=== PATIENT | male | born 1935 | race Asian ===

== ENCOUNTER → 2017-03-21 | Outpatient (CLI) | payer MEDICARE | END | disposition home or self-care (01) | LOC: LAB 10:11 | PROVIDERS: ATTEND Physician Assistant | DX: E03.9 Hypothyroidism, unspecified (principal) | CPT/HCPCS: 36415; 84439; 84443; 84480 ==

== ENCOUNTER 2017-11-02 09:38 | Emergency (ER) | payer MEDICARE ==
[~2017-11-02] VITALS: Ht 165.1 cm; Wt 65.8 kg
[2017-11-02 10:24] LABS: MICROSCOPIC NOT IND
[2017-11-02 10:30] LABS: CULTURE INDICATED? NO
[2017-11-02] MEDS ORDERED: CHOL200024 PO (11:04)
[2017-11-02] MEDS ORDERED: LISI2.5T PO (11:04)
[2017-11-02] MEDS ORDERED: CYAN100072 PO (11:04)
[2017-11-02] MEDS ORDERED: ATOR-2 PO (11:04)
[2017-11-02] MEDS ORDERED: SODIUM CHLORIDE FLUSH 10ML SYR IVF ONE (11:30)
[2017-11-02 12:01] LABS: BASOPHILS # (AUTO) 0.04 x10^3/uL (0-0.1); BASOPHILS % (AUTO) 1 % (0-1); EOSINOPHILS # (AUTO) 0.06 x10^3/uL (0-0.4); EOSINOPHILS % (AUTO) 1 % (1-7); LYMPHOCYTES # (AUTO) 1.61 x10^3/uL (1-3.4); LYMPHOCYTES % (AUTO) 27 % (22-44); MD NO; MEAN CORPUSCULAR HEMOGLOBIN 31.9 pg (27.5-34.5); MEAN CORPUSCULAR HGB CONC 33.4 g/dL (33.2-36.2); MEAN CORPUSCULAR VOLUME 95.5 fL (81-97); MEAN PLATELET VOLUME 8.7 fL (7.4-10.4); MONOCYTES # (AUTO) 0.45 x10^3/uL (0.2-0.8); MONOCYTES % (AUTO) 8 % (2-9); NEUTROPHILS # (AUTO) 3.73 x10^3/uL (1.8-6.8); NEUTROPHILS % (AUTO) 63 % (42-75); PLATELET COUNT 224 x10^3/uL (130-400); RED BLOOD COUNT 4.53 x10^6/uL (4.38-5.82); RED CELL DISTRIBUTION WIDTH 13.2 % (9.4-14.8)
[2017-11-02 12:09] LABS: ALANINE AMINOTRANSFERASE 18 U/L (12-78); ALBUMIN 4.2 g/dL (3.4-5.0); ANION GAP 6 mmol/L (5-15); CALCIUM 8.8 mg/dL (8.5-10.1); CHLORIDE 107 mmol/L (98-107); CREATININE 1.12 mg/dL (0.7-1.3)
[2017-11-02 12:11] LABS: ALKALINE PHOSPHATASE 132 U/L (45-117); BILIRUBIN,TOTAL 1.2 mg/dL (0.2-1.0); TOTAL PROTEIN 8.2 g/dL (6.4-8.2)
[2017-11-02 13:18] VITALS: BP 179/79
== END 2017-11-02 14:18 | disposition home or self-care (01) ==
LOC: ED 11:04
DX: R10.12 Left upper quadrant pain (principal); I10 Essential (primary) hypertension; E78.5 Hyperlipidemia, unspecified
CPT/HCPCS: 36415; 74177; 80053; 81003; 83605; 83690; 85025; 99285

== ENCOUNTER 2018-07-20 17:36 | Inpatient (IN) | payer MEDICARE ==
[~2018-07-20] VITALS: Ht 170.2 cm; Wt 52.0 kg
[~2018-07-20 17:36] MED LIST: ATOR-2 PO; CHOL200024 PO; CYAN100072 PO; LISI2.5T PO
[2018-07-20] MEDS ORDERED: ONDANSETRON ODT 4 MG PO ONE (18:00)
[2018-07-20] MEDS ORDERED: HYDROmorphone 2 MG/ML, 1ML IVPush PRN (18:00)
[2018-07-20] MEDS ORDERED: VICODIN PO (18:02)
[2018-07-20] MEDS ORDERED: ONDANSETRON ODT 4 MG ONE (18:12)
[2018-07-20] MEDS ORDERED: HYDROmorphone 2 MG/ML, 1ML ONE (18:12)
[2018-07-20] MEDS ORDERED: OXYcodone/APAP 5/325MG TABLET PO ONE (19:00)
[2018-07-20] MEDS ORDERED: OXYcodone/APAP 5/325MG TABLET ONE (19:00)
[2018-07-20 19:33] LABS: BASOPHILS # (AUTO) 0.03 x10^3/uL (0-0.1); BASOPHILS % (AUTO) 0 % (0-1); EOSINOPHILS # (AUTO) 0.06 x10^3/uL (0-0.4); EOSINOPHILS % (AUTO) 1 % (1-7); LYMPHOCYTES # (AUTO) 1.41 x10^3/uL (1-3.4); LYMPHOCYTES % (AUTO) 22 % (22-44); MD NO; MEAN CORPUSCULAR HEMOGLOBIN 31.7 pg (27.5-34.5); MEAN CORPUSCULAR VOLUME 93.2 fL (81-97); MEAN PLATELET VOLUME 7.4 fL (7.4-10.4); MONOCYTES % (AUTO) 8 % (2-9); NEUTROPHILS % (AUTO) 68 % (42-75); PLATELET COUNT 303 x10^3/uL (130-400); RED BLOOD COUNT 3.82 x10^6/uL (4.38-5.82); RED CELL DISTRIBUTION WIDTH 14.4 % (9.4-14.8)
[2018-07-20 19:45] LABS: ALANINE AMINOTRANSFERASE 15 U/L (12-78); ALBUMIN 3.2 g/dL (3.4-5.0); ANION GAP 6 mmol/L (5-15); CALCIUM 8.8 mg/dL (8.5-10.1); CHLORIDE 108 mmol/L (98-107); CREATININE 0.77 mg/dL (0.7-1.3)
[2018-07-20 19:49] LABS: ALKALINE PHOSPHATASE 331 U/L (45-117); BILIRUBIN,TOTAL 0.9 mg/dL (0.2-1.0); TOTAL PROTEIN 7.8 g/dL (6.4-8.2); TROPONIN I < 0.015 ng/mL (0.000-0.045)
[2018-07-20 20:45] LABS: MICROSCOPIC INDICATED
[2018-07-20 20:49] LABS: CULTURE INDICATED? YES
[2018-07-20] MEDS ORDERED: BISACODYL 10 MG SUPP PR PRN (21:00)
[2018-07-20] MEDS ORDERED: ACETAMINOPHEN 325 MG TABLET PO PRN (21:00)
[2018-07-20] MEDS ORDERED: POLYETHYLENE GLYCOL 17 GM PACKET PO PRN (21:00)
[2018-07-20] MEDS ORDERED: ONDANSETRON ODT 4 MG PO PRN (21:00)
[2018-07-20 21:02] VITALS: BP_SYST 201; BP_SYST 218; BP_DIAS 84; BP_DIAS 89
[2018-07-20] MEDS: HEPARIN 5,000 UNITS/ML, 1ML SQ SCH (21:51)
[2018-07-20] MEDS: morphine SULFATE 10 MG/ML, 1ML IVPush PRN (21:52)
[2018-07-20] MEDS: SODIUM CHLORIDE FLUSH 10ML SYR IVF SCH (21:55)
[2018-07-20 22:28] VITALS: BP 195/81
[2018-07-20] MEDS: hydrALAzine 20 MG/ML, 1ML IV PRN (23:22)
[2018-07-21 00:23] VITALS: BP 135/55
[2018-07-21 01:54] VITALS: BP 159/71
[2018-07-21] MEDS: morphine SULFATE 10 MG/ML, 1ML IVPush PRN ×5 (04:08→20:53)
[2018-07-21] MEDS: HEPARIN 5,000 UNITS/ML, 1ML SQ SCH ×3 (05:57→20:03)
[2018-07-21 08:15] VITALS: BP 131/62
[2018-07-21] MEDS: SENNA/DOCUSATE TABLET PO SCH (10:10)
[2018-07-21] MEDS: AMLODIPINE 5 MG TABLET PO SCH (10:10)
[2018-07-21] MEDS: TAMSULOSIN 0.4 MG CAP.ER.24H PO SCH (10:13)
[2018-07-21] MEDS: SODIUM CHLORIDE FLUSH 10ML SYR IVF SCH ×2 (14:28→20:01)
[2018-07-21 14:41] LABS: FREE T4 (FREE THYROXINE) 0.96 ng/dL (0.76-1.46)
[2018-07-21 15:16] VITALS: BP 143/61
[2018-07-21] MEDS: POTASSIUM CHLORIDE 20 MEQ PACKET PO SCH (19:23)
[2018-07-21 19:46] VITALS: BP 179/80
[2018-07-21] MEDS: hydrALAzine 20 MG/ML, 1ML IV PRN (20:01)
[2018-07-22] MEDS: morphine SULFATE 10 MG/ML, 1ML IVPush PRN ×5 (00:55→20:25)
[2018-07-22 01:00] VITALS: BP 115/49
[2018-07-22 04:53] LABS: ALBUMIN 2.6 g/dL (3.4-5.0); ANION GAP 6 mmol/L (5-15); CALCIUM 8.4 mg/dL (8.5-10.1); CHLORIDE 109 mmol/L (98-107)
[2018-07-22 04:56] LABS: ALANINE AMINOTRANSFERASE 13 U/L (12-78); ALKALINE PHOSPHATASE 292 U/L (45-117); CREATININE 0.74 mg/dL (0.7-1.3); TOTAL PROTEIN 6.4 g/dL (6.4-8.2)
[2018-07-22] MEDS: LEVOTHYROXINE 25 MCG TABLET PO SCH (05:00)
[2018-07-22] MEDS: HEPARIN 5,000 UNITS/ML, 1ML SQ SCH (05:00)
[2018-07-22] MEDS ORDERED: ENOXAPARIN 40 MG/0.4 ML SQ SCH (07:00)
[2018-07-22 07:26] VITALS: BP 137/54
[2018-07-22 13:40] VITALS: BP 155/73
[2018-07-22] MEDS: POTASSIUM CHLORIDE 20 MEQ PACKET PO SCH ×2 (13:56→18:20)
[2018-07-22] MEDS: TAMSULOSIN 0.4 MG CAP.ER.24H PO SCH (13:56)
[2018-07-22] MEDS: ERGOCALCIFEROL 50,000 UNIT CAPSULE PO SCH (13:57)
[2018-07-22] MEDS: AMLODIPINE 5 MG TABLET PO SCH (13:57)
[2018-07-22] MEDS: SENNA/DOCUSATE TABLET PO SCH (13:57)
[2018-07-22] MEDS: SODIUM CHLORIDE FLUSH 10ML SYR IVF SCH ×2 (14:16→20:25)
[2018-07-22 17:53] LABS: BASOPHILS # (AUTO) 0.02 x10^3/uL (0-0.1); BASOPHILS % (AUTO) 0 % (0-1); EOSINOPHILS # (AUTO) 0.01 x10^3/uL (0-0.4); EOSINOPHILS % (AUTO) 0 % (1-7); LYMPHOCYTES # (AUTO) 1.04 x10^3/uL (1-3.4); LYMPHOCYTES % (AUTO) 12 % (22-44); MD NO; MEAN CORPUSCULAR HEMOGLOBIN 31.5 pg (27.5-34.5); MEAN CORPUSCULAR HGB CONC 33.8 g/dL (33.2-36.2); MEAN CORPUSCULAR VOLUME 93.2 fL (81-97); MONOCYTES # (AUTO) 0.74 x10^3/uL (0.2-0.8); MONOCYTES % (AUTO) 9 % (2-9); NEUTROPHILS % (AUTO) 79 % (42-75); PLATELET COUNT 271 x10^3/uL (130-400); RED BLOOD COUNT 3.64 x10^6/uL (4.38-5.82); RED CELL DISTRIBUTION WIDTH 14.2 % (9.4-14.8)
[2018-07-22] MEDS: OXYcodone IR 5MG TABLET PO PRN (18:20)
[2018-07-22 20:49] VITALS: BP 118/58
[2018-07-23 01:31] VITALS: BP 160/72
[2018-07-23] MEDS: morphine SULFATE 10 MG/ML, 1ML IVPush PRN ×6 (01:41→21:54)
[2018-07-23] MEDS: LEVOTHYROXINE 25 MCG TABLET PO SCH (05:21)
[2018-07-23 06:58] VITALS: BP 161/74
[2018-07-23] MEDS: POTASSIUM CHLORIDE 20 MEQ PACKET PO SCH (08:31)
[2018-07-23] MEDS: AMLODIPINE 5 MG TABLET PO SCH (08:31)
[2018-07-23] MEDS: ERGOCALCIFEROL 50,000 UNIT CAPSULE PO SCH (08:31)
[2018-07-23] MEDS: SENNA/DOCUSATE TABLET PO SCH (08:31)
[2018-07-23] MEDS: SODIUM CHLORIDE FLUSH 10ML SYR IVF SCH ×2 (08:32→20:44)
[2018-07-23] MEDS: TAMSULOSIN 0.4 MG CAP.ER.24H PO SCH (08:32)
[2018-07-23] MEDS: OXYcodone IR 5MG TABLET PO PRN (11:24)
[2018-07-23] MEDS: HEPARIN 5,000 UNITS/ML, 1ML SQ SCH ×2 (12:37→20:43)
[2018-07-23 13:07] VITALS: BP 111/62
[2018-07-23 19:42] VITALS: BP 120/56
[2018-07-24 01:27] VITALS: BP 124/57
[2018-07-24] MEDS: morphine SULFATE 10 MG/ML, 1ML IVPush PRN ×7 (02:16→23:13)
[2018-07-24] MEDS: HEPARIN 5,000 UNITS/ML, 1ML SQ SCH ×3 (02:16→19:41)
[2018-07-24] MEDS: LEVOTHYROXINE 25 MCG TABLET PO SCH (06:05)
[2018-07-24] MEDS: OXYcodone IR 5MG TABLET PO PRN (07:04)
[2018-07-24 07:14] VITALS: BP 136/70
[2018-07-24] MEDS: SENNA/DOCUSATE TABLET PO SCH (09:42)
[2018-07-24] MEDS: AMLODIPINE 5 MG TABLET PO SCH (09:42)
[2018-07-24] MEDS: ERGOCALCIFEROL 50,000 UNIT CAPSULE PO SCH (09:43)
[2018-07-24] MEDS: SODIUM CHLORIDE FLUSH 10ML SYR IVF SCH ×2 (09:43→19:41)
[2018-07-24] MEDS: TAMSULOSIN 0.4 MG CAP.ER.24H PO SCH (09:43)
[2018-07-24] MEDS ORDERED: OXYcodone IR 5MG TABLET PO PRN (12:30)
[2018-07-24 12:35] VITALS: BP 119/58
[2018-07-24 19:38] VITALS: BP 95/57
[2018-07-25 02:00] VITALS: BP 101/63
[2018-07-25] MEDS: morphine SULFATE 10 MG/ML, 1ML IVPush PRN ×4 (03:39→12:32)
[2018-07-25] MEDS: HEPARIN 5,000 UNITS/ML, 1ML SQ SCH ×2 (03:39→11:50)
[2018-07-25] MEDS: LEVOTHYROXINE 25 MCG TABLET PO SCH (06:00)
[2018-07-25] MEDS ORDERED: ERGO500017 PO (06:31)
[2018-07-25] MEDS ORDERED: SENN1TAB8 PO (06:31)
[2018-07-25] MEDS ORDERED: LEVO25TA2 PO (06:31)
[2018-07-25] MEDS ORDERED: TAMS-11 PO (06:31)
[2018-07-25 07:21] VITALS: BP 124/59
[2018-07-25] MEDS: ERGOCALCIFEROL 50,000 UNIT CAPSULE PO SCH (09:33)
[2018-07-25] MEDS: SODIUM CHLORIDE FLUSH 10ML SYR IVF SCH (09:33)
[2018-07-25] MEDS: TAMSULOSIN 0.4 MG CAP.ER.24H PO SCH (09:34)
[2018-07-25] MEDS: SENNA/DOCUSATE TABLET PO SCH (09:34)
[2018-07-25] MEDS: AMLODIPINE 5 MG TABLET PO SCH (09:34)
== END 2018-07-25 13:31 | disposition hospice, home (50) | DRG 374 ==
LOC: ED 19:16 → EDIP 20:24 → 3NW 20:54
PROVIDERS: ADMIT Internal Medicine; ATTEND Internal Medicine
PROC: 0T9B70Z Drainage of Bladder with Drainage Device, Via Natural or Artificial Opening (ICD-10-PCS; principal; 2018-07-20)
DX: C16.9 Malignant neoplasm of stomach, unspecified (principal); R53.2 Functional quadriplegia; E44.1 Mild protein-calorie malnutrition; R64 Cachexia; C78.00 Secondary malignant neoplasm of unspecified lung; Z68.1 Body mass index [BMI] 19.9 or less, adult; R62.7 Adult failure to thrive; E87.6 Hypokalemia; D64.9 Anemia, unspecified; D63.8 Anemia in other chronic diseases classified elsewhere; E55.9 Vitamin D deficiency, unspecified; E78.5 Hyperlipidemia, unspecified; G89.29 Other chronic pain; I10 Essential (primary) hypertension; Z66 Do not resuscitate; E02 Subclinical iodine-deficiency hypothyroidism
CPT/HCPCS: 36415; 71045; 80053; 81001; 82306; 82607; 83880; 84439; 84443; 84484; 85025; 86480; 87086; 93005; 99285; G0378; J1644; J1650; Q0162; J0360; J2270